=== PATIENT | female | born 1985 | race Two or more races ===

== ENCOUNTER 2025-02-12 10:51 | Emergency (ER) | payer MEDICAID, SELFPAY ==
[2025-02-12 11:08] VITALS: BP 129/78; PULSE 76; RESP 18; TEMP 36.6; O2SAT 98; BMI 20.5
--- NOTE | 2025-02-12 11:13 | XR_ITS ---
Examination: Complete OB ultrasound, less than 14 weeks, transabdominal Date and time of exam: February 12, 2025 1305 hours INDICATIONS: Vaginal bleeding today Technique: Obstetrical ultrasound images less than 14 weeks performed via transabdominal imaging Findings: Uterus 8.0 cm Intrauterine gestational sac 0.8 cm corresponds to 5 weeks 4 days gestational age No pole No cardiac activity Right ovary 3.5 cm arterial flow Left ovary 4.5 cm arterial flow IMPRESSION: Recommend transvaginal pelvic sonography follow-up to confirm viability.
[2025-02-12 11:39] LABS: Basophils # (Auto) 0.1 Thou/mm3 (0.0-0.2); Basophils % (Auto) 1 % (0-2.5); Eosinophils # (Auto) 0.2 Thou/mm3 (0.0-0.5); Eosinophils % (Auto) 2 % (0-10); Hematocrit 42.3 % (36.0-46.0); Hemoglobin 14.1 g/dL (12.0-16.0); Immature Granulocytes % (Auto) 1 % (0-0); Immature Granulocytes Auto 0.06 Thou/mm3 (0.00-0.00); Lymphocytes # (Auto) 3.3 Thou/mm3 (1.0-4.8); Lymphocytes % (Auto) 34 % (10-50); Mean Corpuscular HGB Conc 33.3 g/dl (31.0-37.0); Mean Corpuscular Hemoglobin 30.2 pg (25.0-35.0); Mean Corpuscular Volume 91 fL (80-100); Monocytes # (Auto) 0.5 Thou/mm3 (0.0-0.8); Monocytes % (Auto) 5 % (0-12); Neutrophils # (Auto) 5.7 Thou/mm3 (1.8-7.7); Neutrophils % (Auto) 58 % (37-80); Nucleated Red Blood Cell % 0 /100 WBC (0); Platelet Count 205 Thou/mm3 (140-440); RDW Standard Deviation 42.3 fL (36.4-46.3); Red Blood Count 4.67 Miln/mm3 (4.00-5.20); White Blood Count 9.7 Thou/mm3 (3.6-11.0)
[2025-02-12] MEDS: ACETAMINOPHEN 500 MG TABLET 1000 MG PO (11:50)
[2025-02-12 12:51] LABS: Alanine Aminotransferase 11 U/L (10-49); Albumin, Serum 4.4 gm/dL (3.5-5.0); Anion Gap 10 (7-16); Aspartate Amino Transferase 20 U/L (0-34); BUN/Creatinine Ratio 13 Ratio (12-20); Bilirubin,Total 0.6 mg/dL (0.3-1.2); Blood Urea Nitrogen 9 mg/dL (9-23); Calcium 9.1 mg/dL (8.3-10.6); Calcium (Corrected) 9.1 mg/dL (8.5-10.1); Carbon Dioxide 25.1 mMol/L (20.0-31.0); Chloride 104 mMol/L (98-107); Creatinine (Component) 0.7 mg/dL (0.6-1.3); Estimated Creatinine Clearance 93.2 mL/min (>60); Glucose 87 mg/dL (74-106); Osmolality,Calculated 275 (275-295); Potassium 3.9 mMol/L (3.4-5.1); Sodium 139 mMol/L (136-145); eGFR > 60 See Note
[2025-02-12 12:52] LABS: Albumin/Globulin Ratio 1.7 (1.2-2.2); Alkaline Phosphatase 73 U/L (46-116); Globulin 2.6 gm/dL (2.3-3.5)
[2025-02-12 13:00] LABS: Collection Type, Urine Clean Catch
[2025-02-12 13:03] LABS: Beta HCG,Quantitative 9871 mIU/mL (<5.0)
[2025-02-12 13:12] LABS: Bacteria,Urine Rare; Bilirubin,Urine Negative (Negative); Blood,Urine 2+ (Negative); Clarity,Urine Clear (Clear/Hazy); Color,Urine Colorless (Lt Yel-Yel); Glucose, Urine Negative (Negative); Ketones,Urine Negative (Negative); Leukocyte Esterase,Urine Positive (Negative); Nitrite,Urine Negative (Negative); PH,Urine 6.5 (5.0-7.0); Protein,Urine Negative (Neg - Trace); RBC,Urine 2 /hpf (0-3); Specific Gravity,Urine 1.007 (1.001-1.035); Squamous Epithelial Cell,Urine < 1 /hpf (0-5); Urobilinogen,Urine Negative mg/dL (0.0-1.0); WBC,Urine 4 /hpf (0-5)
--- NOTE | 2025-02-12 14:45 | EDNOTE_ITS ---
ED OB Contraction Preg RMI/HPI General Chief complaint: Vaginal Bleeding Stated complaint: PREG 6WKS, BLEEDING TODAY, PRESSURE IN BACK Time Seen by Provider: 02/12/25 11:12 Arrival date/time: 02/12/25 10:51 39-year-old female with no significant ankle problems presents for concerns for vaginal bleeding and pelvic pain and dysuria patient reports that she is approximately 6 weeks Limitations: no limitations Related Data Previous Rx's ?Medication ?Instructions ?Recorded cephalexin 500 mg capsule 500 mg PO BID 5 days #10 cap s 02/12/25 Allergies Allergy/AdvReac Type Severity Reaction Status Date / Time No Known Allergies Allergy Verified 02/12/25 10:56 Review of Systems Review of Systems Systems Reviewed: All systems reviewed, normal except as documented Constitutional Constitutional: Reports system reviewed and no additional complaints, except as documented, Denies fever(s) and Denies headache(s) Eyes Eyes: Reports system reviewed and no additional complaints, except as documented and Denies blurry vision ENT Ears, Nose, Mouth, and Throat: Reports system reviewed and no additional complaints, except as documented, Denies headache(s), Denies nasal congestion and Denies nasal discharge Cardiovascular Cardiovascular: Reports system reviewed and no additional complaints, except as documented, Denies chest pain and Denies dyspnea Respiratory Respiratory: Reports system reviewed and no additional complaints, except as documented, Denies chest congestion, Denies cough and Denies dyspnea Gastrointestinal Gastrointestinal: Reports system reviewed and no additional complaints, except as documented and Denies abdominal pain Genitourinary Genitourinary: Reports system reviewed and no additional complaints, except as documented and Reports abnormal vaginal bleeding Integumentary/Breasts Skin/Breast: Reports system reviewed and no additional complaints, except as documented and Denies rash Neurologic Neurologic: Reports system reviewed and no additional complaints, except as documented, Reports as per HPI and Denies headache(s) Past Medical History Social History SMOKING STATUS: Never smoker ED Exam General Limitations: Present no limitations General appearance: Present alert and in no apparent distress Head Head exam: Present atraumatic Eye Eye exam: Present normal appearance, PERRL and EOMI ENT ENT exam: Present normal exam, normal oropharynx and mucous membranes moist Neck Neck exam: Present normal inspection, full ROM and trachea midline Chest Chest inspection: Present normal inspection and symmetric chest wall rise Respiratory Respiratory exam: Present normal lung sounds bilaterally Cardiovascular Cardiovascular exam: Present regular rate, normal rhythm and normal heart sounds Abdominal Exam Abdominal exam: Present soft and normal bowel sounds Extremities Exam Extremities exam: Present normal inspection and full ROM Back Exam Back exam: Present normal inspection and full ROM Neurological Exam Neurological exam: Present alert, oriented X3 and CN II-XII intact Psychiatric Psychiatric exam: Present normal affect and normal mood Skin Skin exam: Present warm, dry, intact and normal color Course Quality Measures none Orders Category Date Time Status US OB <= 14 weeks fetus Stat Exams 02/12/25 11:13 Completed ABO/RH Type Stat Lab 02/12/25 11:18 Completed Beta HCG,Quantitative Stat Lab 02/12/25 12:17 Completed CBC Stat Lab 02/12/25 11:18 Completed Comprehensive Metabolic Panel Stat Lab 02/12/25 12:17 Completed UA [Urinalysis] Stat Lab 02/12/25 11:30 Completed Urine Culture Stat Lab 02/12/25 11:30 Received Acetaminophen Tab [Tylenol ES Tab] Med 02/12/25 11:13 Discontinued 1,000 mg PO X1 ONE Vital Signs Vital signs: Vital Signs Temperature 97.8 F 02/12/25 11:08 Pulse Rate 76 02/12/25 11:08 Respiratory Rate 18 02/12/25 11:08 Blood Pressure 129/78 02/12/25 11:08 Pulse Oximetry (%) 98 02/12/25 11:08 Oxygen Delivery Method Room Air 02/12/25 11:08 O2 saturation 98% room air within normal limits Vaginal Bleeding MDM Narrative MDM Narrative: 39-year-old female with no significant ankle problems presents for concerns for vaginal bleeding and pelvic pain and dysuria patient reports that she is approximately 6 weeks On exam patient well-appearing patient is not appear ill or toxic patient does not appear in any acute distress Imaging as well as lab work obtained no acute emergent findings noted As patient does have some bacteria positive leukocyte esterase patient will treat with a course of antibiotics Patient instructed to have repeat lab work and ultrasound in 1 week Patient instructed to return for emergent concerns Patient data External records reviewed:: [facility] previous records Clinical information provided by:: patient Social determinants that could affect healthcare access:: none Patient has the following chronic illnesses:: None How is presenting disease/condition affected by chronic disease/condition?: no chronic disease Evaluation data The following diagnostics were reviewed and interpreted by me:: lab results and radiology exam(s) Lab and/or radiology exams considered but not ordered:: Lab and radiology obtain Interpretation Summary: Reviewed by me Medications / Prescriptions Medications or Prescriptions considered but not ordered:: Given Medication administrations:: Medication Administration History Discontinued Medications Acetaminophen (Acetaminophen 500 Mg Tablet) 1,000 mg PO X1 ONE Stop: 02/12/25 11:14 Last Admin: 02/12/25 11:50 Dose: 1,000 mg Documented By: OA Given Consultations Consultation(s) initiated? (list below): No Diagnosis Vaginal Bleeding Differential Diagnosis: missed , threatened and vaginal bleeding Most likely diagnosis given after review of the tests above:: Threatened Admission Indicated Admission indicated?: not indicated Admission Request Was there a request for admission?: No Disposition Plan Disposition Plan: Discharge Discharge Attestation Discharge Attestation: The patient and all family members were given an opportunity to ask questions and understood the discharge instructions. Discharge instructions specifically effects, indications for sooner follow up or return to the emergency department, and the expected course of current diagnosis. Patient condition: Stable Discharge Plan Plan Patient Disposition: HOME (Self Care) Disposition Comment: Stable Prescriptions/Referrals Prescriptions/Med Rec: New cephalexin 500 mg capsule 500 mg PO BID 5 Days Qty: 10 0RF Referrals: Karsten De La Torre MD [Primary Care Provider] - In 1 week Problem List Clinical Impression: Threatened Patient/Caregiver Discharge Instructions Additional Instructions: Please have repeat lab work and ultrasound to document viability for worsening symptoms return immediately Print Language: [place] Islander Stand Alone Forms: Belinda Award Info., Patient Portal Info Letter KORIN/ADRIAN Supervising Physician KORIN/ADRIAN Supervising Physician: Dr lawrence
== END 2025-02-12 18:06 | disposition home or self-care (01) ==
PROVIDERS: Nurse Practitioner Primary Care; Emergency Provider Emergency Medicine; PCP Obstetrics & Gynecology
DX: O20.0 Threatened abortion (principal); Z3A.01 Less than 8 weeks gestation of pregnancy
CPT/HCPCS: 36415; 76801; 80053; 81001; 84702; 85025; 86900; 86901; 87086; 99284; A9270

== ENCOUNTER → 2025-02-26 | Outpatient (CLI) | payer MEDICAID, SELFPAY ==
--- NOTE | 2025-02-26 10:17 | XR_ITS ---
Examination: OB Transvaginal ultrasound of the pelvis, complete Technique: Transvaginal sonographic images pelvis performed using horton scale imaging Exam date and time: February 26, 2025 1036 hours INDICATIONS: Vaginal bleeding beginning 2 weeks ago FINDINGS: Uterus 8.9 cm CRL 1.2 cm corresponding to 7 weeks 2 days gestational age Cardiac motion 138 BPM Subchorionic hemorrhage 21 x 11 x 15 mm Right ovary 2.4 cm arterial flow hemorrhagic cyst 17 mm Left ovary obscured by bowel gas IMPRESSION: Viable intrauterine gestation 7 weeks 2 days Subchorionic hemorrhage 21 x 11 x 15 mm.
== END | disposition home or self-care (01) ==
PROVIDERS: PCP Obstetrics & Gynecology; Referring Provider Obstetrics & Gynecology; Visit Provider Obstetrics & Gynecology
DX: O20.0 Threatened abortion (principal); Z3A.01 Less than 8 weeks gestation of pregnancy
CPT/HCPCS: 76817

== ENCOUNTER 2025-04-09 19:27 | Emergency (ER) | payer MEDICAID, SELFPAY ==
[2025-04-09 19:29] VITALS: BMI 25.7
[2025-04-09 19:53] VITALS: BP 104/65; PULSE 93; RESP 18; TEMP 36.9; O2SAT 99
--- NOTE | 2025-04-09 20:01 | XR_ITS ---
Examination: Complete OB ultrasound, less than 14 weeks, transabdominal Date and time of exam: April 09, 2025 2141 hours INDICATION: Pelvic pain and vaginal bleeding today Technique: Obstetrical ultrasound images less than 14 weeks performed via transabdominal imaging Findings: A normal shaped single intrauterine gestation is present in the uterus. pole 7.9 cm corresponds to 13 weeks 6 days gestational age Cardiac motion 160 BPM Ultrasonographic survey of visible and placental structures unremarkable. Amniotic fluid volume appears appropriate for this estimated gestational age. Ovaries obscured by bowel gas IMPRESSION: Viable intrauterine gestation 13 weeks 6 days No subchorionic hemorrhage.
--- NOTE | 2025-04-09 20:08 | PD.EDVAGBL ---
ED OB Contraction Preg RMI/HPI General Chief complaint: Vaginal Bleeding Stated complaint: 13 wks preg abdp pain and vag bleeding Time Seen by Provider: 04/09/25 20:00 Arrival date/time: 04/09/25 19:27 39F at approximately 13 weeks and with no significant PMH presents to ED with 2 days of pelvic pain and vaginal bleeding. Patient denies dysuria. Limitations: no limitations Related Data Allergies Allergy/AdvReac Type Severity Reaction Status Date / Time No Known Allergies Allergy Verified 04/09/25 19:32 Review of Systems Genitourinary Genitourinary: Reports as per HPI, Reports abnormal vaginal bleeding and Reports pelvic pain Past Medical History Social History SMOKING STATUS: Never smoker ED Exam General Limitations: Present no limitations General appearance: Present alert and in no apparent distress Head Head exam: Present atraumatic Eye Eye exam: Present normal appearance, PERRL and EOMI ENT ENT exam: Present normal exam, normal oropharynx and mucous membranes moist Neck Neck exam: Present normal inspection, full ROM and trachea midline Chest Chest inspection: Present normal inspection and symmetric chest wall rise Respiratory Respiratory exam: Present normal lung sounds bilaterally Cardiovascular Cardiovascular exam: Present regular rate, normal rhythm and normal heart sounds Abdominal Exam Abdominal exam: Present soft and normal bowel sounds Extremities Exam Extremities exam: Present normal inspection and full ROM Back Exam Back exam: Present normal inspection and full ROM Neurological Exam Neurological exam: Present alert, oriented X3 and CN II-XII intact Psychiatric Psychiatric exam: Present normal affect and normal mood Skin Skin exam: Present warm, dry, intact and normal color Course Quality Measures none Orders Category Date Time Status US OB <= 14 weeks fetus Stat Exams 04/09/25 20:01 Completed Beta HCG,Quantitative Stat Lab 04/09/25 20:15 Completed CBC Stat Lab 04/09/25 20:15 Completed CMP [Comprehensive Metabolic Panel] Stat Lab 04/09/25 20:15 Completed UA [Urinalysis] Stat Lab 04/09/25 20:10 Completed Urine Culture Stat Lab 04/09/25 20:10 Received Vital Signs Vital signs: Vital Signs Temperature 98.5 F 04/09/25 19:53 Pulse Rate 93 04/09/25 19:53 Respiratory Rate 18 04/09/25 19:53 Blood Pressure 104/65 04/09/25 19:53 Pulse Oximetry (%) 99 04/09/25 19:53 Oxygen Delivery Method Room Air 04/09/25 19:53 O2 at 99% on RA and WNLs Vaginal Bleeding MDM Narrative MDM Narrative: 39F at approximately 13 weeks and with no significant PMH presents to ED with 2 days of pelvic pain and vaginal bleeding. Patient denies dysuria. Physical exam reveals well-appearing female. Patient is afebrile, calm, and alert. Blood type from 2 months ago here was A+. US reveals normal IUP with normal FHR. Beta HCG WNLs. No leukocytosis or anemia. UA and CMP unremarkable. Last Pattern Grader given. Patient data External records reviewed:: [facility] previous records Clinical information provided by:: patient Social determinants that could affect healthcare access:: none Patient has the following chronic illnesses:: none How is presenting disease/condition affected by chronic disease/condition?: no chronic disease Evaluation data The following diagnostics were reviewed and interpreted by me:: lab results and radiology exam(s) Lab and/or radiology exams considered but not ordered:: ordered Interpretation Summary: above Medications / Prescriptions Medications or Prescriptions considered but not ordered:: not ordered Medication administrations:: n/a Consultations Consultation(s) initiated? (list below): No Diagnosis Vaginal Bleeding Differential Diagnosis: missed , threatened , dysfunctional uterine bleeding, menometrorrhagia, incomplete , ectopic without intrauterine and vaginal bleeding Most likely diagnosis given after review of the tests above:: threatened miscarriage Admission Indicated Admission indicated?: not indicated Admission Request Was there a request for admission?: No Disposition Plan Disposition Plan: Discharge Discharge Attestation Discharge Attestation: The patient and all family members were given an opportunity to ask questions and understood the discharge instructions. Discharge instructions specifically effects, indications for sooner follow up or return to the emergency department, and the expected course of current diagnosis. Patient condition: Stable Discharge Plan Plan Patient Disposition: HOME (Self Care) Discharge Disposition comment: Stable Prescriptions/Referrals Referrals: No Primary/Family,Physician [Primary Care Provider] - In 1 week Problem List Clinical Impression: Threatened miscarriage Patient/Caregiver Discharge Instructions Education Materials: ED Possible Miscarriage ... Additional Instructions: Please follow-up with PCP/OBGYN within 24-48 hours and return immediately if symptoms worsen. Print Language: Irish Stand Alone Forms: Patient Portal Info Letter KORIN/ADRIAN Supervising Physician WILLOW Supervising Physician: Dr. Lyons
[2025-04-09 20:17] LABS: Collection Type, Urine Clean Catch
[2025-04-09 20:33] LABS: Basophils # (Auto) 0.1 Thou/mm3 (0.0-0.2); Basophils % (Auto) 1 % (0-2.5); Eosinophils # (Auto) 0.2 Thou/mm3 (0.0-0.5); Eosinophils % (Auto) 2 % (0-10); Hematocrit 36.5 % (36.0-46.0); Hemoglobin 12.8 g/dL (12.0-16.0); Immature Granulocytes % (Auto) 1 % (0-0); Lymphocytes # (Auto) 2.9 Thou/mm3 (1.0-4.8); Lymphocytes % (Auto) 27 % (10-50); Mean Corpuscular HGB Conc 35.1 g/dl (31.0-37.0); Mean Corpuscular Hemoglobin 30.7 pg (25.0-35.0); Mean Corpuscular Volume 88 fL (80-100); Monocytes # (Auto) 0.8 Thou/mm3 (0.0-0.8); Monocytes % (Auto) 7 % (0-12); Neutrophils # (Auto) 6.7 Thou/mm3 (1.8-7.7); Neutrophils % (Auto) 63 % (37-80); Nucleated Red Blood Cell % 0 /100 WBC (0); Platelet Count 189 Thou/mm3 (140-440); RDW Standard Deviation 40.8 fL (36.4-46.3); Red Blood Count 4.17 Miln/mm3 (4.00-5.20); White Blood Count 10.7 Thou/mm3 (3.6-11.0)
[2025-04-09 20:48] LABS: Bacteria,Urine Rare; Bilirubin,Urine Negative (Negative); Blood,Urine 2+ (Negative); Clarity,Urine Clear (Clear/Hazy); Color,Urine Colorless (Lt Yel-Yel); Glucose, Urine Negative (Negative); Ketones,Urine Negative (Negative); Leukocyte Esterase,Urine Negative (Negative); Nitrite,Urine Negative (Negative); PH,Urine 7.5 (5.0-7.0); Protein,Urine Negative (Neg - Trace); RBC,Urine 1 /hpf (0-3); Specific Gravity,Urine 1.008 (1.001-1.035); Squamous Epithelial Cell,Urine < 1 /hpf (0-5); Urobilinogen,Urine Negative mg/dL (0.0-1.0); WBC,Urine < 1 /hpf (0-5)
[2025-04-09 20:51] LABS: Alanine Aminotransferase 12 U/L (10-49); Albumin, Serum 4.2 gm/dL (3.5-5.0); Albumin/Globulin Ratio 1.6 (1.2-2.2); Alkaline Phosphatase 72 U/L (46-116); Anion Gap 9 (7-16); Aspartate Amino Transferase 16 U/L (0-34); BUN/Creatinine Ratio 8 Ratio (12-20); Bilirubin,Total 0.3 mg/dL (0.3-1.2); Blood Urea Nitrogen 5 mg/dL (9-23); Calcium 8.5 mg/dL (8.3-10.6); Calcium (Corrected) 8.5 mg/dL (8.5-10.1); Carbon Dioxide 24.8 mMol/L (20.0-31.0); Chloride 105 mMol/L (98-107); Creatinine (Component) 0.6 mg/dL (0.6-1.3); Estimated Creatinine Clearance 99.8 mL/min (>60); Globulin 2.6 gm/dL (2.3-3.5); Glucose 99 mg/dL (74-106); Osmolality,Calculated 274 (275-295); Potassium 3.9 mMol/L (3.4-5.1); Sodium 139 mMol/L (136-145); Total Protein 6.8 gm/dL (5.7-8.2); eGFR > 60 See Note
[2025-04-09 21:24] LABS: Beta HCG,Quantitative 97167 mIU/mL (<5.0)
== END 2025-04-09 21:57 | disposition home or self-care (01) ==
PROVIDERS: Physician Assistant; Emergency Provider Emergency Medicine
DX: O20.0 Threatened abortion (principal); Z3A.13 13 weeks gestation of pregnancy
CPT/HCPCS: 36415; 76801; 80053; 81001; 84702; 85025; 87086; 99284

== ENCOUNTER 2025-09-11 10:36 | Outpatient (AMB) | payer MEDICAID, SELFPAY ==
[2025-09-11 11:11] VITALS: BP 116/75; PULSE 76; RESP 14; TEMP 36.3; O2SAT 97; BMI 30.9
--- NOTE | 2025-09-11 11:11 | OBCLNT_ITS ---
Vital Signs 09/11/25 11:11 Height 1.52 m Height Method Stated Weight 71.838 kg Weight Measurement Method Standing Scale BMI 30.9 BP 116/75 Blood Pressure Source Automatic Cuff Blood Pressure Location Left Upper Arm Position Sitting Respiration 14 Pulse 76 Pulse Source Monitor Temp 97.3 F Temp Source Oral Pulse Oximetry (%) 97 Oxygen Delivery Method Room Air Allergies/Home Meds Allergies & Medications Allergies No Known Allergies Allergy (Verified 10/06/25 07:05) Medication Reconciliation vits no.130-ferrous fum 27 mg iron-folic acid 800 mcg tablet ( Vitamin) tab 10/06/25 [History] Intake Visit Data Collection New Patient or Established: Established Patient (seen at [facility] within 3 years) Reason for Visit:: TRANSFER INITIAL CARE Seen by Clinical Staff ONLY (RN/MA): No Senior Boiler Operator Required: Yes Senior Boiler Operator's name/title: DANIELLE TRACY Do You Feel Safe at Home: Yes Authorities Contacted: N/A PCP or OBGYN visit in last 3 months: Yes Hx Now: Yes Are you currently on any form of Control: No Last menstrual period: 12/28/24 Pain Present Currently: No Pain Scale Used: Simons-Hernandez/Numerical Pain scale:: 0 Smoking Status Smoking Status: Never smoker Questionnaires Covid-19 Vaccine Questionnaire Has patient been vacinated for Covid-19 Have you been vacinated for Covid-19: Yes PHQ-9 PHQ-2 Over the last 2 weeks, how often have you been bothered by any of the following problems? 1. Little interest or pleasure in doing things: not at all 2. Feeling down, depressed, or hopeless: not at all Total score: 0 PHQ-9 3. Trouble falling or staying asleep, or sleeping too much: Not at all 4. Feeling tired or having little energy: Not at all 5. Poor appetite or overeating: Not at all 6. Feeling bad about yourself - or that you are a failure or have let yourself or your family down: Not at all 7. Trouble concentrating on things, such as reading the newspaper or watching television: Not at all 8. Moving or speaking so slowly that other people could have noticed? - Or the opposite - being so fidgety or restless that you have been moving around a lot more than usual: not at all 9. Thoughts that you would be better off or of hurting yourself in some way: Not at all Total score: 0 Source: Developed by Drs. Karel Reid, Luz Medina, Shawn Munroe and colleagues, with an educational allyn from [employer]. Depression screen completed yes Social History Living Situation History Marital Status: Lives With: Family Housing: House Tobacco History Smoking Status: Never smoker Second Hand Smoke Exposure: No Alcohol History Alcohol Intake: Current Domestic Abuse History Do You Feel Safe at Home: Yes History of Present Illness HPI Narrative Transfer of care from [facility], constant pain Patient is a 5 para 4 at 36 weeks and 5 days gestation presenting for transfer of care from [facility]. She reports experiencing constant pain but denies contractions. The patient states that the baby is moving all the time. She has a history of four previous normal vaginal deliveries without sections and typically goes into labor spontaneously without induction. The current is a male fetus, and she has chosen the name Pedrito Balderas. Her current has been managed with low-dose aspirin and she was previously on sertraline and hydroxyzine for anxiety management. Medical History: - Long-standing depression and anxiety - Advanced maternal age Obstetric History: - GTPAL: G5 T4 L4 - Current : 36 weeks 5 days gestation by last menstrual period of December 28, 2024, estimated due date October 04, 2025, male fetus - Four prior pregnancies all resulted in full-term spontaneous vaginal deliveries with no complications - All four children are living - All prior deliveries were attended by icer hand Juliana Sahni Medications: - Sertraline for anxiety - Hydroxyzine for anxiety - Low-dose aspirin Social History: - Has 4 children from previous pregnancies Diagnostic Test Results and Labs: - Glucose Screening (07/05/2025): 102 mg/dL, within normal limits - RPR (08/12/2025): Non-reactive - HIV (08/12/2025): Negative - Initial panel (03/13/2025): A1C 5.1, rubella immune, RPR non- reactive, HIV non-reactive, hepatitis B negative - NIPT (03/13/2025): Negative for trisomy, gender consistent with male - Initial urine culture (03/13/2025): Negative OB Initial Visit OB Flowsheet OB Flowsheet Initial Weight: Not Recorded Date -?-?-?-?-?-?-?-?-?-?-?-?- EGA Weight BP Alb Glu CTX Pres Fundal ht FHR Mov Dilation Station Effacement Hx Notes Visit Note 09/20/25 -?-?-?-?-?-?-?-?-?-?-?-?- 36w 5d 72.235 kg 120/73 occasional cephalic 37 156 active This is a 40-year-old 5 para 4 for OBI. Patient is a transfer from [facility] with records. Denies leaking or bleeding. She had an MFM ultrasound yesterday. Denies leaking, bleeding, contractions GBS today. Discussed labor precautions and kick count. Discussed OB precautions. Return in a week OB check 09/27/25 -?-?-?-?-?-?-?-?-?-?-?-?- 37w 5d 73.255 kg 121/70 occasional cephalic 37 155 active 1 -3 25 sve: L/1/-3, post/soft, reports good movement. Denies leaking, bleeding. Occasional contraction and increased pressure GBS is negative. Discussed labor precautions. Kick count twice a day. Increase fluids. Discussed ER precautions Menstrual History Menstrual reliability: definite Flow: normal Menstrual regularity: regular Monthly: Yes Age at menarche: 10 On control pills at conception: No Associated symptoms (LMP): Denies amenorrhea, nausea, vomiting, fatigue, breast tenderness, urinary frequency, irritability, bloating or other OB History : 5 Para: 4 # of Living Children: 4 Delivery History 1st : Child's name: MILTON date: 08/30/05 sex: female Delivery type: vaginal Delivery complications: NONE History of depression before or after : Yes 2nd : Child's name: NIC date: 09/04/08 sex: male Gestational age at delivery (weeks): 40 Delivery type: vaginal Delivery complications: NONE History of depression before or after : Yes 3rd : Child's name: RANDY date: 10/26/02 sex: male Gestational age at delivery (weeks): 39 Delivery type: vaginal Delivery complications: NONE History of depression before or after : Yes 4th : Child's name: STEPHANIE date: 10/09/17 sex: female Gestational age at delivery (weeks): 40 Delivery type: vaginal Delivery complications: NONE History of depression before or after : Yes Infection History & Risk Evaluation History of STDs: none Genetic Screening & History Genetic Screening/Teratology Counseling - Includes patient, baby's father, or anyone in either family with: 1. Patient's age 35 years or older as of estimated date of delivery: Yes 2. Thalassemia (Irish, Belarusian, Mediterranean, or Background); MCV less than 80: No 3. Neural Tube Defect (Meningomyelocele, Spina Bifida, or Anencephaly): No 4. Congenital Heart Defect: No 5. Down Syndrome: Yes (AUNT MATERNAL SIDE) 6. Ricardo-Sachs (Ashkenazi Nondenominational, Cajun, Polish Lao): No 7. Salty Disease (Ashkenazi Nondenominational): No 8. Familial Dysautonomia (Ashkenazi Nondenominational): No 9. Sickle Cell Disease or Trait (): No 10. Hemophilia or other blood disorders: No 11. Muscular Dystrophy: No 12. Cystic Fibrosis: No 13. Bethany's Chorea: No 14. Mental Retardation/Autism: No 15. Other inherited genetic or chromosomal disorder: No 16. Maternal Metabolic Disorder (EG,TYPE 1 Diabetes, PKU): No 17. Patient or baby's father had a child with defects not listed above: No 18. Recurrent loss or a stillbirth: No 19. Medications (including supplements, vitamins, herbs or otc drugs)/illicit/recreational drugs/alcohol since last menstrual period: No 20. Any other: No Infection History 1. Live with someone with TB or exposed to TB: No 2. Rash or viral illness since last menstrual period: No 3. Hepatitis B,C: No Other (see comments) Source: [employer] Review of Systems Constitutional Constitutional: Denies fatigue Gastrointestinal Gastrointestinal: Denies bloating, Denies nausea and Denies vomiting Genitourinary Genitourinary: Denies amenorrhea and Denies urinary frequency Psychiatric Psychiatric: Denies irritability Endocrine Endocrine: Denies fatigue Exam General General Appearance: alert, in no apparent distress and healthy appearing Head Head exam: atraumatic Neck Neck exam: Present normal inspection and trachea midline Chest Chest inspection: Present normal inspection and symmetric chest wall rise External exam: Present normal external exam; Absent tenderness Neuro Neurological exam: Present oriented X3 Psych Psychiatric exam: Present normal affect and normal mood Office Procedures OBC Clinic LOC & Office Proc's Nursing/Assessment Patient Status: Established Patient OB Clinic Nursing Assessment: Medication Reconciliation, Update PMH in EMR and Vital Signs OB Clinic Coordination of Care: AMA, Complex Care and Chronic Disease 1-5, Consent,records obtained, informed consent, Education Simp Pt/Fam, 1 Ins Authorization, Lab and Imaging orders, Results/Orders obtained and Staff clarify orders Special Needs: Heart tones Established Patient Charge Established Patient Point Assignment: 170 Established Patient Point Charge: EP Level 5 (160-above) Assessment & Plan Diagnosis / Problem List (1) Supervision of high risk , unspecified, third trimester: Status: Acute Plan Constant pain at 36 weeks gestation Assessment: Patient reports constant pain at 36 weeks 5 days gestation. heart rate normal at 170 bpm with good movement. Patient appears very uncomfortable but no specific etiology of pain was identified during this visit. Plan: - No specific interventions discussed for pain management during this visit , intrauterine, 36 weeks 5 days Plan: - Schedule follow-up appointments with nathalie Mckenzieife - Plan induction at 39 weeks (not before) - Continue current management Advanced maternal age Assessment: Patient has advanced maternal age as documented problem during current . Plan: - Continue routine care Depression and anxiety Assessment: Patient has history of long-standing depression and anxiety. Previously treated with sertraline and hydroxyzine. Plan: - No changes to psychiatric medications discussed during this visit
== END 2025-09-11 11:26 | disposition home or self-care (01) ==
LOC: HODSOBC 10:36
PROVIDERS: Supervising Provider Obstetrics & Gynecology; Visit Provider Obstetrics & Gynecology
DX: O09.523 Supervision of elderly multigravida, third trimester (principal); Z3A.00 Weeks of gestation of pregnancy not specified
CPT/HCPCS: 99215; G0463

== ENCOUNTER 2025-09-20 09:41 | Outpatient (AMB) | payer MEDICAID, SELFPAY ==
[2025-09-20 10:22] VITALS: BP 120/73; PULSE 85; RESP 18; TEMP 36.2; O2SAT 98; BMI 31.2
--- NOTE | 2025-09-20 10:22 | OBCLNT_ITS ---
Vital Signs 09/20/25 10:22 Height 1.52 m Height Method Stated Weight 72.235 kg Weight Measurement Method Standing Scale BMI 31.2 BP 120/73 Blood Pressure Source Automatic Cuff Blood Pressure Location Left Upper Arm Position Sitting Respiration 18 Pulse 85 Pulse Source Monitor Temp 97.2 F Temp Source Oral Pulse Oximetry (%) 98 Oxygen Delivery Method Room Air Allergies/Home Meds Allergies & Medications Allergies No Known Allergies Allergy (Verified 09/20/25 10:30) Medication Reconciliation No Known Home Medications 09/11/25 [History Confirmed 09/20/25] Intake Visit Data Collection New Patient or Established: Established Patient (seen at [facility] within 3 years) Reason for Visit:: OBC Seen by Clinical Staff ONLY (RN/MA): No Airline Pilot Flight Instructor Required: No Do You Feel Safe at Home: Yes Authorities Contacted: N/A PCP or OBGYN visit in last 3 months: Yes Date of Last PCP or OBGYN visit: 09/11/25 Hx Now: Yes Are you currently on any form of Control: No Pain Present Currently: No Pain Scale Used: Simons-Hernandez/Numerical Pain scale:: 0 Smoking Status Smoking Status: Never smoker Immunizations Flu Vaccine in the Last 12 Months: No Flu Vaccine Exclusion Criteria: No Exclusion Criteria Questionnaires Covid-19 Vaccine Questionnaire Has patient been vacinated for Covid-19 Have you been vacinated for Covid-19: No PHQ-9 PHQ-2 Over the last 2 weeks, how often have you been bothered by any of the following problems? 1. Little interest or pleasure in doing things: not at all 2. Feeling down, depressed, or hopeless: not at all Total score: 0 PHQ-9 3. Trouble falling or staying asleep, or sleeping too much: Not at all 4. Feeling tired or having little energy: Not at all 5. Poor appetite or overeating: Not at all 6. Feeling bad about yourself - or that you are a failure or have let yourself or your family down: Not at all 7. Trouble concentrating on things, such as reading the newspaper or watching television: Not at all 8. Moving or speaking so slowly that other people could have noticed? - Or the opposite - being so fidgety or restless that you have been moving around a lot more than usual: not at all 9. Thoughts that you would be better off or of hurting yourself in some way: Not at all Total score: 0 If you checked off any problems, how difficult have these problems made it for you to do your work, take care of things at home, or get along with other people?: not difficult at all Source: Developed by Drs. Karel Reid, Luz Medina, Shawn Munroe and colleagues, with an educational allyn from [employer]. Depression screen completed yes Social History Living Situation History Lives With: Family Housing: House Tobacco History Smoking Status: Never smoker Second Hand Smoke Exposure: No Alcohol History Alcohol Intake: Current Domestic Abuse History Do You Feel Safe at Home: Yes Care OB Visit Log OB Flowsheet Initial Weight: Not Recorded Date -?-?-?-?-?-?-?-?-?-?-?-?- EGA Weight BP Alb Glu CTX Pres Fundal ht FHR Mov Dilation Station Effacement Hx Notes Visit Note 09/20/25 -?-?-?-?-?-?-?-?-?-?-?-?- 36w 5d 72.235 kg 120/73 occasional cephalic 37 156 active This is a 40-year-old 5 para 4 for OBI. Patient is a transfer from [facility] with records. Denies leaking or bleeding. She had an MFM ultrasound yesterday. Denies leaking, bleeding, contractions GBS today. Discussed labor precautions and kick count. Discussed OB precautions. Return in a week OB check ARNOLD Calculator Estimated Delivery Date Method Current WG Current Estimate 10/13/25 Ultrasound #1 36w 5d Other Estimates 10/04/25 LMP (Certain) 38w 0d 10/13/25 Ultrasound #2 36w 5d 10/13/25 Manual 36w 5d final arnold: 09/28 05/22 efw: 51% Notes Visit Date: 09/20/25 Last Updated by: Juliana Sahni CNM oB panel: A+,abs-, rpr;;nr, rub imm, hbsag-,hiv-,HC-, GC/CT-. 1 hr gtt:: wnl. NIPT: neg/boy 40 yo , lmp: . EDC: 10/13/25; sono: : IUP 36 w4, 51%. ALANNA normal, no previa, vtx Office Procedures OBC Clinic LOC & Office Proc's Nursing/Assessment Patient Status: Established Patient OB Clinic Nursing Assessment: Medication Reconciliation, Update PMH in EMR and Vital Signs OB Clinic Coordination of Care: Consent,records obtained, informed consent, Education Simp Pt/Fam, Lab and Imaging orders, Results/Orders obtained and Staff clarify orders Special Needs: Heart tones Established Patient Charge Established Patient Point Assignment: 110 Established Patient Point Charge: EP Level 2 (40-75) Assessment & Plan Diagnosis / Problem List (1) Supervision of high risk , unspecified, third trimester: Status: Acute (2) Advanced maternal age (AMA) in : Status: Acute Plan Discussed dates. GBS today. Discussed labor precautions and kick count. Return in a week OB check Additional Plan Follow Up: 1 Week (obc)
== END 2025-09-20 11:05 | disposition home or self-care (01) ==
LOC: HODSOBC 09:41
PROVIDERS: Supervising Provider Advanced Practice Midwife; Visit Provider Advanced Practice Midwife
DX: O09.523 Supervision of elderly multigravida, third trimester (principal); Z3A.36 36 weeks gestation of pregnancy; Z36.85 Encounter for antenatal screening for Streptococcus B
CPT/HCPCS: 99212; G0463

== ENCOUNTER 2025-09-27 11:18 | Outpatient (AMB) | payer MEDICAID, SELFPAY ==
[2025-09-27 11:33] VITALS: BP 121/70; PULSE 98; RESP 18; TEMP 36.2; O2SAT 98; BMI 31.7
--- NOTE | 2025-09-27 11:33 | OBCLNT_ITS ---
Vital Signs 09/27/25 11:33 Height 1.52 m Height Method Stated Weight 73.255 kg Weight Measurement Method Standing Scale BMI 31.7 BP 121/70 Blood Pressure Source Automatic Cuff Blood Pressure Location Left Upper Arm Position Sitting Respiration 18 Pulse 98 Pulse Source Monitor Temp 97.2 F Temp Source Oral Pulse Oximetry (%) 98 Oxygen Delivery Method Room Air Allergies/Home Meds Allergies & Medications Allergies No Known Allergies Allergy (Verified 09/27/25 11:35) Medication Reconciliation No Known Home Medications 09/11/25 [History Confirmed 09/27/25] Intake Visit Data Collection New Patient or Established: Established Patient (seen at [facility] within 3 years) Reason for Visit:: OBC Seen by Clinical Staff ONLY (RN/MA): No Mold Mover Required: No Do You Feel Safe at Home: Yes Authorities Contacted: N/A PCP or OBGYN visit in last 3 months: Yes Date of Last PCP or OBGYN visit: 09/20/25 Hx Now: Yes Are you currently on any form of Control: No Pain Present Currently: No Pain Scale Used: Simons-Hernandez/Numerical Pain scale:: 0 Smoking Status Smoking Status: Never smoker Immunizations Flu Vaccine in the Last 12 Months: No Flu Vaccine Exclusion Criteria: No Exclusion Criteria Questionnaires Covid-19 Vaccine Questionnaire Has patient been vacinated for Covid-19 Have you been vacinated for Covid-19: No PHQ-9 PHQ-2 Over the last 2 weeks, how often have you been bothered by any of the following problems? 1. Little interest or pleasure in doing things: not at all 2. Feeling down, depressed, or hopeless: not at all Total score: 0 PHQ-9 3. Trouble falling or staying asleep, or sleeping too much: Not at all 4. Feeling tired or having little energy: Not at all 5. Poor appetite or overeating: Not at all 6. Feeling bad about yourself - or that you are a failure or have let yourself or your family down: Not at all 7. Trouble concentrating on things, such as reading the newspaper or watching television: Not at all 8. Moving or speaking so slowly that other people could have noticed? - Or the opposite - being so fidgety or restless that you have been moving around a lot more than usual: not at all 9. Thoughts that you would be better off or of hurting yourself in some way: Not at all Total score: 0 If you checked off any problems, how difficult have these problems made it for you to do your work, take care of things at home, or get along with other people?: not difficult at all Source: Developed by Drs. Karel Reid, Luz Medina, Shawn Munroe and colleagues, with an educational allyn from [employer]. Depression screen completed yes Social History Living Situation History Lives With: Family Housing: House Tobacco History Smoking Status: Never smoker Second Hand Smoke Exposure: No Alcohol History Alcohol Intake: Current Domestic Abuse History Do You Feel Safe at Home: Yes Care OB Visit Log OB Flowsheet Initial Weight: Not Recorded Date -?-?-?-?-?-?-?-?-?-?-?-?- EGA Weight BP Alb Glu CTX Pres Fundal ht FHR Mov Dilation Station Effacement Hx Notes Visit Note 09/20/25 -?-?-?-?-?-?-?-?-?-?-?-?- 36w 5d 72.235 kg 120/73 occasional cephalic 37 156 active This is a 40-year-old 5 para 4 for OBI. Patient is a transfer from [facility] with records. Denies leaking or bleeding. She had an MFM ultrasound yesterday. Denies leaking, bleeding, contractions GBS today. Discussed labor precautions and kick count. Discussed OB precautions. Return in a week OB check 09/27/25 -?-?-?-?-?-?-?-?-?-?-?-?- 37w 5d 73.255 kg 121/70 occasional cephalic 37 155 active 1 -3 25 sve: L/1/-3, post/soft, reports good movement. Denies leaking, bleeding. Occasional contraction and increased pressure GBS is negative. Discussed labor precautions. Kick count twice a day. Increase fluids. Discussed ER precautions ARNOLD Calculator Estimated Delivery Date Method Current WG Current Estimate 10/13/25 Ultrasound #1 37w 5d Other Estimates 10/04/25 LMP (Certain) 39w 0d 10/13/25 Ultrasound #2 37w 5d 10/13/25 Manual 37w 5d final arnold: 09/28 05/22 efw: 51% Notes Visit Date: 09/27/25 Last Updated by: Juliana Sahni CNM GBS- Visit Date: 09/20/25 Last Updated by: Juliana Sahni CNM oB panel: A+,abs-, rpr;;nr, rub imm, hbsag-,hiv-,HC-, GC/CT-. 1 hr gtt:: wnl. NIPT: neg/boy 40 yo , lmp: . EDC: 10/13/25; sono: : IUP 36 w4, 51%. ALANNA normal, no previa, vtx Office Procedures OBC Clinic LOC & Office Proc's Nursing/Assessment Patient Status: Established Patient OB Clinic Nursing Assessment: Medication Reconciliation, Update PMH in EMR and Vital Signs OB Clinic Coordination of Care: Consent,records obtained, informed consent, Education Simp Pt/Fam, Lab and Imaging orders, Results/Orders obtained and Staff clarify orders Special Needs: Heart tones Established Patient Charge Established Patient Point Assignment: 110 Established Patient Point Charge: EP Level 3 (80-115) Assessment & Plan Diagnosis / Problem List (1) Supervision of high risk , unspecified, third trimester: Status: Acute (2) Advanced maternal age (AMA) in : Status: Acute Plan Kick count twice a day. Discussed labor cautions. Discussed danger signs symptoms and ER precautions continue prenatals. Increase fluids. Return in a week OB check Additional Plan Follow Up: 1 Week (obc)
== END 2025-09-27 11:57 | disposition home or self-care (01) ==
LOC: HODSOBC 11:18
PROVIDERS: Supervising Provider Advanced Practice Midwife; Visit Provider Advanced Practice Midwife
DX: O09.523 Supervision of elderly multigravida, third trimester (principal); Z3A.37 37 weeks gestation of pregnancy
CPT/HCPCS: 99213; G0463

== ENCOUNTER 2025-10-06 05:03 | Inpatient (IN) | payer MEDICAID, SELFPAY ==
[2025-10-06] VITALS (31 sets, daily range): BP systolic 97–132; BP diastolic 56–82; PULSE 66–87; RESP 16–98; TEMP 36.7–36.8; O2SAT 82–100; BMI 31.8
--- NOTE | 2025-10-06 05:27 | ESHP_ITS ---
Documentation for date of: 10/06/25 OB Labor/Induct. HPI History of Present Illness Chief complaint: painful regular contractions : 5 Para: 4 Term pregnancies: 4 pregnancies: 0 Living children: 4 History of Abortions: Spontaneous and Elective: 0 History of Vaginal deliveries: 4 History of sections: No ARNOLD: 10/13/25 Gestational Age (weeks): 39 Gestational Age (days): 0 History of present illness: Patient presents for regular, painful ctx. No LOF. No vaginal bleeding. Normal movement. No fevers/chills. History of Present Dating criteria: based on 1st trimester US only Adequate Care: Yes Narrative: Hx of term x4 Current complicated by: -AMA, age 40. Taking ASA -Anxiety and depression. Sees psychiatrist. Takes hydroxyzine and sertraline. -Subchorionic hematoma in early -[facility] Blood Type: A Pos Labs: Positive: Rubella Titre and Negative: RPR, Hepatitis B, HIV, Chlamydia, Gonorrhea and Group Beta Strep Review of Systems Review of Systems Narrative Review of Systems: Review of Systems Systems Reviewed: All systems reviewed, normal except as documented Constitutional Constitutional: Denies body ache(s), Denies chills, Denies fever(s) and Denies headache(s) ENT Ears, Nose, Mouth, and Throat: Denies headache(s) and Denies vertigo Cardiovascular Cardiovascular: Denies chest pain, Denies palpitations, Denies dyspnea and Denies syncope Respiratory Respiratory: Denies cough, Denies dyspnea Gastrointestinal Gastrointestinal: Denies nausea and Denies vomiting Neurologic Neurologic: Denies convulsions, Denies headache(s), Denies other visual disturbances, Denies syncope and Denies vertigo Past Medical History Family History OTHER FAMILY HX: non-contributory Surgical History SURGICAL: Negative Section Social History SOCIAL: > 20 years. Homemaker. No tobacco/ETOH/illicit drugs. Past Medical History Comments PMH COMMENT: Anxiety and depression. Sees psychiatrist. Takes hydroxyzine and sertraline. Meds Home Medications and Allergies Home Medications ?Medication ?Instructions ?Recorded ?Confirmed ?Type vits no.130-ferrous fum tab 10/06/25 History 27 mg iron-folic acid 800 mcg tablet ( Vitamin) Allergies Allergy/AdvReac Type Severity Reaction Status Date / Time No Known Allergies Allergy Verified 10/06/25 07:05 OB Exam Physical Exam Vital signs: Temp Pulse Resp BP Pulse Ox 98.3 F 83 17 132/78 H 99 10/06/25 05:16 10/06/25 05:17 10/06/25 05:16 10/06/25 05:17 10/06/25 05:23 Narrative: General: well developed, well nourished, no acute distress, conversant Cardiac: normal heart rate Lungs: breathing without distress Abdomen: soft, gravid, non-tender, no rebound or guarding Extremities: no pain with palpation of calves Detailed Labor and Delivery Exam Dilation (cm): 6 Effacement (%): 80 Cervix position: posterior station: -1 Consistency: soft Presentation: Vertex Membranes: intact monitor accelerations: 15x15 monitor decelerations: None retirement variability: Moderate (11-25) Contraction frequency (min): q5-7 OB Results Labs 10/06/25 13:48 OB Assessment & Plan Assessment and Plan (1) Active labor at term: Status: Acute Assessment and plan: Esme is a 40yo with SIUP at 39&0wk presenting in active labor. Regular/painful contractions, SCE: 6/80/-1. Vitals wnl, benign exam. Reassuring assessment. PMhx/ complicated by: -AMA, age 40. Taking ASA -Anxiety and depression. Sees psychiatrist. Takes hydroxyzine and sertraline. -Subchorionic hematoma in early -Transfer of care from Dr. De La Torre to [facility] Plan: -Admit to L&D -Establish IV, routine labs -CEFM -Clear liquid diet -Educational Advisor/consent re: -GBS status: negative -Anticipate -Safe to proceed (2) Advanced maternal age (AMA) in : Status: Acute (3) Supervision of high risk , unspecified, third trimester: Status: Acute (4) Grand multipara in labor: Status: Acute
[2025-10-06] MEDS: fentaNYL CIT INJ 50 mCg/ML AMP 2ML 100 MCG IVP (07:18)
[2025-10-06 07:32] LABS: Basophils # (Auto) 0.1 Thou/mm3 (0.0-0.2); Basophils % (Auto) 1 % (0-2.5); Eosinophils # (Auto) 0.2 Thou/mm3 (0.0-0.5); Eosinophils % (Auto) 2 % (0-10); Hematocrit 38.9 % (36.0-46.0); Hemoglobin 13.0 g/dL (12.0-16.0); Immature Granulocytes Auto 0.25 Thou/mm3 (0.00-0.00); Lymphocytes # (Auto) 3.3 Thou/mm3 (1.0-4.8); Lymphocytes % (Auto) 27 % (10-50); Mean Corpuscular HGB Conc 33.4 g/dl (31.0-37.0); Mean Corpuscular Hemoglobin 29.3 pg (25.0-35.0); Mean Corpuscular Volume 88 fL (80-100); Monocytes # (Auto) 0.9 Thou/mm3 (0.0-0.8); Monocytes % (Auto) 8 % (0-12); Neutrophils # (Auto) 7.2 Thou/mm3 (1.8-7.7); Neutrophils % (Auto) 60 % (37-80); Nucleated Red Blood Cell # 0.00 Thou/mm3 (0.00-0.00); Nucleated Red Blood Cell % 0 /100 WBC (0); Platelet Count 158 Thou/mm3 (140-440); RDW Standard Deviation 46.2 fL (36.4-46.3); Red Blood Count 4.44 Miln/mm3 (4.00-5.20); White Blood Count 12.0 Thou/mm3 (3.6-11.0)
[2025-10-06] MEDS: MINERAL OIL 30 ML UDC TOP (07:55)
[2025-10-06] MEDS: OXYTOCIN in NS 20 units 20 UNIT/1,000 ML BAG 125 UNIT IV (07:55)
[2025-10-06 08:00] LABS: Syphilis Nonreactive (Nonreactive)
[2025-10-06] MEDS: BENZO/LANO/ALOE (Dermoplast) 60 GM CAN 1 SPRAY TOP (08:10)
[2025-10-06] MEDS: IBUPROFEN TAB 400 MG TABLET 800 MG PO ×2 (08:10→16:21)
--- NOTE | 2025-10-06 08:16 | OBDSUM_ITS ---
Data (Argueta) Data Hx Section: No : 5 Term: 4 : 0 Livin Abortions: Spontaneous & Theraputic: 0 Delivery Data (Argueta) Labor Data Initiation of labor: Spontaneous Induction/Augmentation Agent: None ROM date: 10/06/25 ROM time: 07:49 Amniotic membrane rupture type: Artificial Amniotic fluid description: Clear Delivery Data Onset of labor date: 10/06/25 Onset of labor time: 05:25 Complete dilation date: 10/06/25 Complete dilation time: 07:45 delivery date: 10/06/25 delivery time: 07:54 Placenta delivery date: 10/06/25 Placenta delivery time: 07:58 Stage 1 total time: Labor - Stage 1 Duration 2 hours and 20 minutes Delivered by: NIKKIE LLAMAS Delivery nurse: SARMAD GORDON RN [place] nurse: SHILPA DOMINGUEZ RN Certified Pharmacy Technician at delivery: No Support person(s) at delivery: FOB Other staff at delivery: TRAVIS ORNELAS STEFANO BRUNO RN Delivery Method Delivery method: Normal Vaginal Delivery Presentation: Vertex Anesthesia Type Anesthesia Type: None Placenta Placenta delivery description: Spontaneous Cord blood sent to lab: Yes cord blood collection: Cord Blood Type Episiotomy Episiotomy description: None EBL Estimated blood loss (ml): 150 Umbilical Cord cord description: 3 Vessels and Nuchal Cord Additional Procedures Esme is a 40yo s/p uncomplicated at 39&0wk after presenting in active labor, delivering at 0754 on 10/06/2025. On presentation, SCE was 6cm. She progressed without pitocin augmentation to C/C/0 at which point she began pushing. She declined epidural, but did receive IV fentanyl for pain relief. With good maternal pushing efforts, 's head delivered STACIE. Left anterior shoulder delivered easily followed by posterior shoulder and corpus. had spontaneous cry and was vigorous. Apgars 9/9. placed on maternal abdomen where nose/mouth were suctioned and dried/stimulated. After approximately 1 minute, cord was clamped x2 and cut by FOB. Cord blood collected for typing. With fundal massage and cord traction, placenta delivered spontaneously and intact with 3 vessel centrally inserted cord. Bimanual massage performed and IV pitocin given per protocol with fundus then firm at u-2cm and hemostasis noted. Inspection of perineum and vagina revealed a tiny nishant on the posterior forschette which was reapproximated with a single suture using 3-0 vicryl. Fundus and lower uterine segment remained firm. Uterine massage again performed, hemostasis noted. All counts correct x2. Mom and were doing well when I left the room. Ana Odonnell MD Complications Complications: none Data (Argueta) Exeter Data order: 1 Exeter's gender: Male 1 minute: 9 5 minutes: 9
[2025-10-06] MEDS: DOCUSATE SOD 100 MG CAPSULE PO ×2 (10:17→20:06)
[2025-10-06] MEDS: PRENATAL VITAMIN/FE FUM/FA TABLET 1 TAB PO (10:17)
[2025-10-06] MEDS: HYDROcodone/APAP 5/325 TABLET 1 TAB PO (10:18)
[2025-10-06 14:00] LABS: Basophils # (Auto) 0.1 Thou/mm3 (0.0-0.2); Basophils % (Auto) 0 % (0-2.5); Eosinophils # (Auto) 0.1 Thou/mm3 (0.0-0.5); Eosinophils % (Auto) 0 % (0-10); Hematocrit 34.4 % (36.0-46.0); Hemoglobin 11.7 g/dL (12.0-16.0); Immature Granulocytes Auto 0.14 Thou/mm3 (0.00-0.00); Lymphocytes # (Auto) 2.3 Thou/mm3 (1.0-4.8); Lymphocytes % (Auto) 15 % (10-50); Mean Corpuscular HGB Conc 34.0 g/dl (31.0-37.0); Mean Corpuscular Hemoglobin 29.5 pg (25.0-35.0); Mean Corpuscular Volume 87 fL (80-100); Monocytes # (Auto) 1.2 Thou/mm3 (0.0-0.8); Monocytes % (Auto) 8 % (0-12); Neutrophils # (Auto) 11.8 Thou/mm3 (1.8-7.7); Neutrophils % (Auto) 76 % (37-80); Nucleated Red Blood Cell # 0.00 Thou/mm3 (0.00-0.00); Nucleated Red Blood Cell % 0 /100 WBC (0); Platelet Count 134 Thou/mm3 (140-440); RDW Standard Deviation 45.2 fL (36.4-46.3); Red Blood Count 3.96 Miln/mm3 (4.00-5.20); White Blood Count 15.6 Thou/mm3 (3.6-11.0)
[2025-10-07 05:00] VITALS: BP 126/73; PULSE 79; RESP 18; TEMP 36.9; O2SAT 98
[2025-10-07 08:00] VITALS: BP 120/66; PULSE 81; RESP 18; TEMP 36.6; O2SAT 97
[2025-10-07] MEDS: PRENATAL VITAMIN/FE FUM/FA TABLET 1 TAB PO (08:12)
[2025-10-07] MEDS: DOCUSATE SOD 100 MG CAPSULE PO (08:12)
--- NOTE | 2025-10-07 11:00 | PC.SS ---
BENCH REPAIR TECHNICIAN conducted bedside contact with the patient to address nursing referral indicating patient possessed history of depression.? BENCH REPAIR TECHNICIAN utilized manager government to assist with discussion.? BENCH REPAIR TECHNICIAN introduced self and role.? At bedside with patient was Regino HARE.? Patient gave permission for FOB to be present during discussion.? BENCH REPAIR TECHNICIAN reviewed basis of referral.? Patient confirmed possession of depression.? Patient confirmed participating in counseling and discontinuing medication to address mood disorder.? Patient reports no impairment with daily functioning.? Reviewed with patient symptoms of depression.? Denies presence of symptoms.? Spouse relayed no concerns related to patient?s emotional status.? OB services conducted with Kar[facility].? Patient reports consistency with OB appointments.? Infant, Pedrito; is the patient?s fifth child.? delivered naturally. ?Patient is receiving WIC and SNAP.? Patient is not receiving TANF.? Patient denies history of alcohol/drug abuse.? Patient denies CWS intervention.? Patient denies episodes of domestic violence.? Patient plans on combo feeding the .? Patient has access to appropriate supplies and equipment; to include a car seat.? FOB will provide transportation upon discharge.? Patient describes possessing support system consisting of FOB and extended family.? BENCH REPAIR TECHNICIAN provided the patient with community resources to include Parenting Network and Warm Line.? No further intervention required at this time, social services assistant will be available to address any further concerns.? BENCH REPAIR TECHNICIAN updated bedside nurse.?
--- NOTE | 2025-10-07 11:14 | PC.NURSE ---
patient cleared by [employer] in [employer] social worker
--- NOTE | 2025-10-07 11:15 | PD.LDDS ---
DS: Providers Provider Date of admission: 10/06/25 05:43 Primary care physician: Physician No Primary/Family Admitting Provider: Juliana Sahni CNM Attending Provider on Admission: Ana Odonnell MD Consults: 10/06/25 08:09 Referral Routine Comment: Attending Provider on DC: Ana Odonnell MD Discharging Provider: Ana Odonnell MD DS: Diagnosis Discharge Diagnosis (1) Vaginal delivery: Status: Acute (2) Grand multipara in labor: Status: Acute (3) Advanced maternal age (AMA) in : Status: Acute (4) Active labor at term: Status: Acute Problem List Completed Was Problem List Reviewed/Reconciled?: Yes Summary/Hosp Course Brief History: Esme is a 40yo s/p uncomplicated at 39&0wk after presenting in active labor, delivering at 0754 on 10/06/2025. She has had an uncomplicated course, meeting all milestones and feels ready for discharge home. She is ambulating without lightheadedness, tolerating regular diet no n/v, spontaneously voiding without issue. She has no chest pain or shortness of breath. No fevers or chills. Minimal, appropriate discomfort. Vitals normal, benign exam. Hemodynamically stable with no evidence of infection. PP Hgb 11.7 from 13. Notably, patient has PPD screening score 16, negative for SI. She has hx of anxiety and depression, sees psychiatrist and has upcoming appt. Will be cleared with social work prior to discharge. I discussed with her difference between baby blues and PPD, reasons to be seen sooner. I instructed her to follow up with [facility]ALE[facility] Sahni in 2 weeks rather than 6 to keep close eye. Discussed no doom scrolling on her phone, spend time with family, get sunlight and have time in nature, etc. Peripartum Data Delivery Method: Normal Vaginal Delivery Episiotomy Description: None Status at Discharge Functional status at discharge: independent ambulation Overall status at discharge: patient is back to baseline Time Spent with Patient Time attestation: Total time spent providing and/or coordinating discharge services: Exam Vital Signs Temp Pulse Resp BP Pulse Ox O2 Del Method 97.9 F 81 18 120/66 97 Room Air 10/07/25 08:00 10/07/25 08:00 10/07/25 08:00 10/07/25 08:00 10/07/25 08:00 10/07/25 08:00 Narrative Exam General: well developed, well nourished, no acute distress, conversant Cardiac: normal heart rate Lungs: breathing without distress Abdomen: soft, post-gravid, non-tender, no rebound or guarding, Fundus firm at u-3cm. Extremities: no pain with palpation of calves, trace edema of BLE Discharge Plan Plan Patient Disposition: HOME (Self Care) Patient condition on transfer: Stable Prescriptions/Referrals Prescriptions/Med Rec: New docusate sodium 100 mg Capsule 100 mg PO BID 10 Days Qty: 20 0RF ibuprofen 800 mg tablet 800 mg PO Q8H PRN (Reason: See Comments) 10 Days Qty: 20 0RF Discontinued aspirin 81 mg tablet,delayed release (DR/EC) Patient Comments: TOME DOS TABLETAS POR V A ORAL A DIARIO No Action Vitamin 27 mg iron- 800 mcg tablet Referrals: No Primary/Family,Physician [Primary Care Provider] Patient/Caregiver Discharge Instructions Discharge Activity: activity as tolerated and other Other Discharge Activity Instructions:: vaginal rest and no heavy lifting more than 10 pounds for 6 weeks. Descanzo vaginal no levantar nada mas pesado de 10 libras por 6 semanas Other Discharge Diet Instructions: regular Education Materials: After a Vaginal , Breast Care After , Print Language: [place] Citizen Activity Restrictions/Additional Instructions: follow up with Juliana Sahni in 2 weeks for visit, call office to schedule appointment Stand Alone Forms: Belinda Award Info., Patient Portal Info Letter Discharge Order Discharge Orders: Discharge (Routine); Ordered 10/07/25 Ordered By: Ana Odonnell Planned Discharge Date 10/07/25
[2025-10-07 11:37] VITALS: BP 124/81; PULSE 84; RESP 16; TEMP 36.6; O2SAT 95
== END 2025-10-07 12:03 | disposition home or self-care (01) | DRG 560 ==
LOC: S4SX 08:21 → S4NX 10:23
PROVIDERS: Admitting Provider Advanced Practice Midwife; Visit Provider Obstetrics & Gynecology
DX: O99.344 Other mental disorders complicating childbirth (principal); F41.9 Anxiety disorder, unspecified; F32.A Depression, unspecified; O69.81X0 Labor and delivery complicated by cord around neck, without compression, not applicable or unspecified; Z3A.39 39 weeks gestation of pregnancy; Z37.0 Single live birth; Z87.59 Personal history of other complications of pregnancy, childbirth and the puerperium
CPT/HCPCS: 36415; 59025; 59409; 85025; 86780; 86850; 86900; 86901; 94762; J2590; J3010; A9270